=== PATIENT | male | born 1945 | race Caucasian/White ===

== ENCOUNTER 2016-08-23 08:30 | Outpatient (CLI) | payer MEDICARE ==
[2016-08-23 09:05] LABS: Calc. Creatinine Clearance 0 mL/min (70-130); Estimated GFR-MDRD Greater than 90
--- NOTE | 2016-08-23 11:09 | CT ---
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 Technique: Serial axial CT imaging at 5 mm intervals from lung bases through pubic symphysis with i ntravenous and oral contrast. Coronal reformatted imaging obtained. FINDINGS: The imaged lung bases are unremarkable. No free intraperitoneal air or fluid is seen. Cholelithiasis is noted. Liver, spleen, pancreas, adrenal glands and kidneys demonstrate no acute f indings. Cholelithiasis is noted. Small bilateral fat containing inguinal hernias are present. Prostate gland is mildly prominent. N o evidence for bowel inflammatory changes or obstruction is seen. Appendix appears normal. There a re scattered atherosclerotic calcification of the abdominal aorta and its branches. No lymphadenopathy is identified within the retroperitoneum, the pelvis, or the mesentery. No suspicious lytic or blastic bone lesion identified. Degenerative changes noted within bilateral sacroiliac joints. Probable benign bone island noted in left iliac bone on image 56. IMPRESSION: 1. No evidence for free intraperitoneal air or small bowel obstruction. No bowel inflammatory chase ge is evident. 2. Numerous incidental findings as detailed above, including atherosclerotic disease and cholelithi asis. POS: [facility]
[2016-08-23] MEDS ORDERED: Iopamidol 370 76% 100 ML VIAL ONE (12:21)
== END 2016-08-23 08:31 | disposition home or self-care (01) ==
LOC: MADCT 08:30
PROVIDERS: ATTEND Psychiatry & Neurology Neurology
DX: E11.44 Type 2 diabetes mellitus with diabetic amyotrophy (principal)
CPT/HCPCS: 36415; 74177; 82565

== ENCOUNTER 2025-02-11 15:40 | Outpatient (CLI) | payer MEDICARE, OTHER | END 2025-02-11 15:41 | disposition home or self-care (01) | LOC: MADRAD 15:40 | PROVIDERS: ATTEND Physician Assistant | DX: M25.551 Pain in right hip (principal); M47.816 Spondylosis without myelopathy or radiculopathy, lumbar region | CPT/HCPCS: 72100 ==